=== PATIENT | male | born 1960 | race Two or more races ===

== ENCOUNTER 2017-11-12 08:22 | Inpatient (IN) | payer OTHER ==
[~2017-11-12] VITALS: Ht 172.7 cm; Wt 65.3 kg
[~2017-11-12 08:22] MED LIST: JANUMET 50-5001 EACH PO; LANTUS SOL100 UNIT/1
[2017-11-19] MEDS ORDERED: IPRATROPIU0.2 MG/1 M IH (09:58)
[2017-11-19] MEDS ORDERED: Lantus 1000 UNITS/10 SUBCUTANEO (09:58)
[2017-11-19] MEDS ORDERED: ZOLPIDEM TARTRA10 MG PO (09:58)
[2017-11-19] MEDS ORDERED: JANUMET 50-5001 EACH PO (09:58)
[2017-11-19] MEDS ORDERED: XOPENEX0.63 MG/3 IH (09:58)
[2017-11-19] MEDS ORDERED: HumaLOG 100 UNIT/1 M SUBCUTANEO (09:58)
== END 2017-11-19 13:29 | disposition home or self-care (01) | DRG 202 ==
LOC: ER 08:22 → MEDJ 19:05
PROC: 3E0F7GC Introduction of Other Therapeutic Substance into Respiratory Tract, Via Natural or Artificial Opening (ICD-10-PCS; principal; 2017-11-12)
PROC: 4A033R1 Measurement of Arterial Saturation, Peripheral, Percutaneous Approach (ICD-10-PCS; 2017-11-12)
DX: J45.41 Moderate persistent asthma with (acute) exacerbation (principal); B37.0 Candidal stomatitis; R09.02 Hypoxemia; B34.9 Viral infection, unspecified; B95.61 Methicillin susceptible Staphylococcus aureus infection as the cause of diseases classified elsewhere

== ENCOUNTER 2019-02-11 11:44 | Emergency (ER) | payer OTHER ==
[~2019-02-11] VITALS: Ht 172.7 cm; Wt 61.7 kg
[~2019-02-11 11:44] MED LIST changes: +HumaLOG 100 UNIT/1 M SUBCUTANEO; +IPRATROPIU0.2 MG/1 M IH; +Lantus 1000 UNITS/10 SUBCUTANEO; +XOPENEX0.63 MG/3 IH; +ZOLPIDEM TARTRA10 MG PO
[2019-02-11] MEDS ORDERED: LANTUS SOL100 UNIT/1 (11:59)
[2019-02-11] MEDS ORDERED: JANUMET 50-1,01 EACH (12:00)
== END 2019-02-11 17:54 | disposition home or self-care (01) ==
LOC: ER 11:44
DX: E11.622 Type 2 diabetes mellitus with other skin ulcer (principal); L97.229 Non-pressure chronic ulcer of left calf with unspecified severity

== ENCOUNTER → 2020-11-28 | Emergency (ER) | payer OTHER ==
[~2020-11-28] VITALS: Ht 172.7 cm; Wt 68.0 kg
[~2020-11-28] MED LIST changes: +JANUMET 50-1,01 EACH
== END | disposition left against medical advice (07) ==
LOC: ER 14:16
DX: Z53.21 Procedure and treatment not carried out due to patient leaving prior to being seen by health care provider (principal)